=== PATIENT | male | born 2000 ===

== ENCOUNTER 2022-10-19 11:06 | Emergency (ER) | payer BC ==
[2022-10-19] MEDS ORDERED: Lidocaine 1% with EPINEPHrine 1:100,000 20 ML MDV INJECT ONE (12:10)
[2022-10-19] MEDS ORDERED: Mupirocin Oint 22 GM Tube TOP ONE (12:11)
== END 2022-10-19 12:00 | disposition home or self-care (01) ==
LOC: LB.ED 11:06
DX: S61.213A Laceration without foreign body of left middle finger without damage to nail, initial encounter (principal); W26.8XXA Contact with other sharp object(s), not elsewhere classified, initial encounter
CPT/HCPCS: 12002; 99282